=== PATIENT | male | born 1960 | race Caucasian/White ===

== ENCOUNTER 2019-06-11 19:25 | Emergency (ER) | payer BC, OTHER ==
[~2019-06-11] VITALS: Ht 165.1 cm; Wt 89.5 kg
[~2019-06-11 19:25] MED LIST: CYCL10TA10 PO
[2019-06-11 19:48] VITALS: BP 160/93
[2019-06-11] MEDS ORDERED: ipratropium/albuterol 3ml nebule NEB ONE (21:50)
--- NOTE | 2019-06-11 22:08 | NUR ---
RT AT BEDSIDE FOR SVN TREATMENT.
[2019-06-11] MEDS ORDERED: AZIT250T PO (22:11)
[2019-06-11] MEDS ORDERED: ALBU18HF2 INH (22:11)
[2019-06-11] MEDS ORDERED: azithromycin 250mg tablet PO ONE (22:30)
== END 2019-06-11 22:42 | disposition home or self-care (01) ==
LOC: ER 19:25
DX: J06.9 Acute upper respiratory infection, unspecified (principal); I10 Essential (primary) hypertension; F17.210 Nicotine dependence, cigarettes, uncomplicated; F10.99 Alcohol use, unspecified with unspecified alcohol-induced disorder; Z79.899 Other long term (current) drug therapy; Y90.9 Presence of alcohol in blood, level not specified
CPT/HCPCS: 71046; 94640; 94760; 99283; 99406